=== PATIENT | female | born 1985 | race Caucasian/White ===

== ENCOUNTER → 2024-01-10 | Outpatient (CLI) | payer BC ==
[~2024-01-10] MED LIST: Iohexol 300 - 100 ML VIAL IV ONE; NS 100 ML IV SCH
== END ==
LOC: COL.RAD 08:19
DX: N20.0 Calculus of kidney (principal)
CPT/HCPCS: Q9967

== ENCOUNTER → 2024-02-19 | Outpatient (CLI) | payer BC | LOC: MC.RAD 09:31 | DX: Z12.31 Encounter for screening mammogram for malignant neoplasm of breast (principal) ==

== ENCOUNTER 2024-04-01 09:46 | Outpatient (CLI) | payer BC ==
[~2024-04-01] VITALS: Ht 165.1 cm; Wt 69.8 kg
[2024-04-01 10:14] VITALS: BP 113/72; PULSE 84; TEMP 98.1
[2024-04-01] MEDS ORDERED: CYMBALTA 60MG60 MG PO (10:25)
[2024-04-01] MEDS ORDERED: EUTHYROX125 MCG PO (10:25)
[2024-04-01] MEDS ORDERED: PAMELOR50 MG PO (10:25)
[2024-04-01] MEDS ORDERED: LINZESS145CAP PO (10:26)
[2024-04-01] MEDS ORDERED: BENTYL 20MG20 MG/TAB PO (10:27)
[2024-04-01] MEDS ORDERED: VITAMIN B12 681 TAB PO (10:27)
[2024-04-01] MEDS ORDERED: PRILOSEC 20MG20 MG PO (10:27)
[2024-04-01 11:45] VITALS: BP 112/80; PULSE 86
--- NOTE | 2024-04-01 11:52 | NUR ---
PROCEDURE COMPLETED, VSS. PT REPORTS SYMPTOMS IMPROVED, REPORTS CHEST PAIN/ANXIETY AT 12/05. PATIENT TRANSFERRED WITH SBA TO WHEELCHAIR AND TRANSPORTED TO [facility]. SPOUSE PRESENT AT BEDSIDE, PLAN OF CARE REVIEWED. REPORT GIVEN TO JONATHON FLORES PRIOR TO TRANSPORT AND TRANSFER OF CARE TO [facility] ON ARRIVAL. BED IN LOWEST POSITION, X2 BEDRAILS IN PLACE, CALL LIGHT PLACED WITHIN REACH.
[2024-04-01 12:15] VITALS: BP 105/73; PULSE 84
[2024-04-01] MEDS ORDERED: FLORINEF ACETA0.1 MG PO (12:56)
== END 2024-04-01 13:05 | disposition home or self-care (01) ==
LOC: COL.CAR 09:46
DX: Z01.810 Encounter for preprocedural cardiovascular examination (principal)

== ENCOUNTER → 2024-08-25 | Outpatient (CLI) | payer BC ==
[~2024-08-25] MED LIST changes: +BENTYL 20MG20 MG/TAB PO; +CYMBALTA 60MG60 MG PO; +EUTHYROX125 MCG PO; +FLORINEF ACETA0.1 MG PO; -Iohexol 300 - 100 ML VIAL IV ONE; +LINZESS145CAP PO; -NS 100 ML IV SCH; +PAMELOR50 MG PO; +PRILOSEC 20MG20 MG PO; +VITAMIN B12 681 TAB PO
== END ==
LOC: MC.RAD 13:47
DX: R92.8 Other abnormal and inconclusive findings on diagnostic imaging of breast (principal)

== ENCOUNTER → 2024-09-11 | Outpatient (CLI) | payer BC | LOC: COL.RAD 07:20 | DX: N20.0 Calculus of kidney (principal) ==